=== PATIENT | male | born 1965 | race Caucasian/White ===

== ENCOUNTER 2023-02-06 15:59 | Outpatient (AMB) | payer OTHER, SELFPAY ==
[2023-02-06 16:05] VITALS: BP 122/60; PULSE 71; O2SAT 95; BMI 34.3
--- NOTE | 2023-02-06 16:05 | HO.NEPHOV ---
HPI HPI Comments History of Present Illness Details Cesario is a pleasant middle-aged man with a short longstanding diabetes mellitus complicated by him CKD. His recent serum creatinine from 1.2 mg/dL as of January 2023. He is scheduled for cataract surgery next month. Overall blood sugar seems to be better controlled. He has no new issues today. Vital Signs 02/06/23 16:05 Height 5 ft 9 in Weight 232 lb BMI 34.3 BP 122/60 Blood Pressure Location Rt brachial Position Sitting Pulse 71 Pulse Source Pulse Oximeter Pulse Oximetry (%) 95 Oxygen Delivery Method Room Air Physical Exam Vital Signs: Last Vital Signs Pulse 71 02/06/23 16:05 BP 122/60 02/06/23 16:05 Pulse Ox 95 02/06/23 16:05 Oxygen Delivery Method Room Air 02/06/23 16:05 BMI result Body Mass Index 34.3 Const General: comfortable Nutritional Appearance: well nourished Orientation/consciousness: patient oriented x3 HEENT Head: No normal to inspection Mouth: moist mucous membranes Neck Neck: Yes supple and Yes no JVD Resp Auscultation: clear to auscultation bilaterally, no rales and rub present Cardio Jugular venous distension: no JVD Palpation: no palpable S3 and no palpable S4 Heart sounds: no rubs GI Palpation (GI): Soft to palpation and nontender Percussion: No Fluid wave present General: Yes no CVA tenderness Back/Spine/Pelvis Back: no CVA tenderness Skin General skin exam: no rashes or lesions noted Neuro General: patient oriented x3 Extrem General: Yes no pedal edema and No clubbing Results Reviewed Results Reviewed: All labs reviewed Assessment & Plan Assessment & Plan (1) CKD (chronic kidney disease) stage 3, GFR 30-59 ml/min: Code(s): N18.30 - Chronic kidney disease, stage 3 unspecified Plan: CKD due to hypertension diabetic disease. Renal function close to baseline. Goal is to slow the portion disease. Continue to avoid nephrotoxic agents Maintain blood pressure less than 130/80 and A1c less than 7%. Maintaining ACEi for renal protection. Unable to increase the dose at this time He will benefit from SGLT 2 inhibitor (2) HTN (hypertension): Code(s): I10 - Essential (primary) hypertension Plan: Blood pressure is well controlled. Discussed low-salt diet Continue current antihypertensive regimen. (3) Diabetes mellitus with kidney disease: Onset Date: Unknown Code(s): E11.21 - Type 2 diabetes mellitus with diabetic nephropathy Plan: Goal is to maintain A1c < 7% All the meds were reviewed and discussed importance of tight control of blood pressure. Coding Level of Care Code Est Pt Level 4 (85679) Diagnoses CKD (chronic kidney disease) stage 3, GFR 30-59 ml/min N18.30 HTN (hypertension) I10 Diabetes mellitus with kidney disease E11.21
== END 2023-02-06 16:26 | disposition home or self-care (01) ==
PROVIDERS: PCP Internal Medicine; Visit Provider Internal Medicine Hypertension Specialist
DX: I12.9 Hypertensive chronic kidney disease with stage 1 through stage 4 chronic kidney disease, or unspecified chronic kidney disease (principal); E11.22 Type 2 diabetes mellitus with diabetic chronic kidney disease; N18.30 Chronic kidney disease, stage 3 unspecified
CPT/HCPCS: 99214

== ENCOUNTER → 2023-02-06 15:59 | Outpatient (BNVA) | payer OTHER, SELFPAY | PROVIDERS: PCP Internal Medicine; Visit Provider Internal Medicine Hypertension Specialist ==

== ENCOUNTER 2023-06-05 15:35 | Outpatient (AMB) | payer OTHER, SELFPAY ==
[2023-06-05 15:37] VITALS: BP 114/64; PULSE 72; O2SAT 96; BMI 32.9
--- NOTE | 2023-06-05 15:37 | HO.NEPHOV ---
HPI HPI Comments History of Present Illness Details Cesario is a pleasant middle-aged man with a short longstanding diabetes mellitus complicated by him CKD. His recent serum creatinine from 1.2 mg/dL as of January 2023. s/p Cataract and able to see clearly Overall blood sugar seems to be better controlled. He has no new issues today. [facility] Surgical History (Updated 06/05/23 @ 15:41 by Elvie Gonzalez) Hx of cataract surgery (~02/2023) Social History (Updated 06/05/23 @ 15:41 by Elvie Gonzalez) Alcohol intake: former Use of substances other than those prescribed or required for medical reasons: No Vital Signs 06/05/23 15:37 Height 5 ft 9 in Weight 223 lb BMI 32.9 BP 114/64 Blood Pressure Location Rt brachial Position Sitting Pulse 72 Pulse Source Pulse Oximeter Pulse Oximetry (%) 96 Oxygen Delivery Method Room Air Physical Exam Vital Signs: Last Vital Signs Pulse 72 06/05/23 15:37 BP 114/64 06/05/23 15:37 Pulse Ox 96 06/05/23 15:37 Oxygen Delivery Method Room Air 06/05/23 15:37 BMI result Body Mass Index 32.9 Const General: comfortable Nutritional Appearance: well nourished Orientation/consciousness: patient oriented x3 HEENT Head: No normal to inspection Mouth: moist mucous membranes Neck Neck: Yes supple and Yes no JVD Resp Auscultation: clear to auscultation bilaterally, no rales and rub present Cardio Jugular venous distension: no JVD Palpation: no palpable S3 and no palpable S4 Heart sounds: no rubs GI Palpation (GI): Soft to palpation and nontender Percussion: No Fluid wave present General: Yes no CVA tenderness Back/Spine/Pelvis Back: no CVA tenderness Skin General skin exam: no rashes or lesions noted Neuro General: patient oriented x3 Extrem General: Yes no pedal edema and No clubbing Assessment & Plan Assessment & Plan (1) CKD (chronic kidney disease) stage 3, GFR 30-59 ml/min: Code(s): N18.30 - Chronic kidney disease, stage 3 unspecified Plan: CKD due to hypertension diabetic disease. Renal function close to baseline. Goal is to slow the progression of kidney disease. Continue to avoid nephrotoxic agents Maintain blood pressure less than 130/80 and A1c less than 7%. Maintaining ACEi for renal protection. Unable to increase the dose at this time (2) HTN (hypertension): Code(s): I10 - Essential (primary) hypertension Plan: Blood pressure is well controlled. Discussed low-salt diet Continue current antihypertensive regimen. (3) Diabetes mellitus with kidney disease: Onset Date: Unknown Code(s): E11.21 - Type 2 diabetes mellitus with diabetic nephropathy Plan: Goal is to maintain A1c < 7% All the meds were reviewed and discussed importance of tight control of blood pressure. Coding Level of Care Code Est Pt Level 4 (48927) Diagnoses CKD (chronic kidney disease) stage 3, GFR 30-59 ml/min N18.30 HTN (hypertension) I10 Diabetes mellitus with kidney disease E11.21 Results Reviewed Results Reviewed: 05/30/23 cr 1.5 Nephrology Results: No Data to Display
== END 2023-06-05 15:54 | disposition home or self-care (01) ==
PROVIDERS: PCP Internal Medicine; Visit Provider Internal Medicine Hypertension Specialist
DX: N18.30 Chronic kidney disease, stage 3 unspecified (principal); I10 Essential (primary) hypertension; E11.21 Type 2 diabetes mellitus with diabetic nephropathy
CPT/HCPCS: 99214

== ENCOUNTER → 2023-06-05 15:35 | Outpatient (BNVA) | payer OTHER, SELFPAY | PROVIDERS: PCP Internal Medicine; Visit Provider Internal Medicine Hypertension Specialist ==

== ENCOUNTER 2023-10-03 15:48 | Outpatient (AMB) | payer OTHER, SELFPAY ==
--- NOTE | 2023-10-03 15:47 | HO.NEPHOV_ITS ---
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 His recent serum creatinine from 1.2 mg/dL as of January 2023. s/p Cataract and able to see clearly Overall blood sugar seems to be better controlled. He has no new issues today. Did not have blood work yet [facility] Surgical History Hx of cataract surgery (~02/2023) Social History Alcohol intake: former Physical Exam Vital Signs: Last Vital Signs Pulse 72 10/03/23 15:48 BP 130/60 10/03/23 15:48 Pulse Ox 97 10/03/23 15:48 Oxygen Delivery Method Room Air 10/03/23 15:48 BMI result Body Mass Index 33.7 Const General: comfortable; No acute distress Orientation/consciousness: patient oriented x3 Eyes General: appearance normal, both eyes and all related structures Visual Hewitt: normal visual hewitt by confrontation Neck Neck: Yes supple and Yes no JVD Resp Effort & Inspection: normal respiratory effort and respiratory effort not decreased Auscultation: rhonchi Cardio Palpation: no palpable S3 and no palpable S4 Heart sounds: no rubs GI Inspection: Yes normal to inspection Palpation (GI): Soft to palpation Percussion: Yes normal to percussion Auscultation: normal bowel sounds General: Yes no CVA tenderness Back/Spine/Pelvis Back: no CVA tenderness Skin General skin exam: no petechiae and no purpura Neuro General: patient oriented x3 and no focal motor deficits Extrem General: No clubbing and No edema Results Reviewed Nephrology Results: No Data to Display Assessment & Plan Assessment & Plan (1) CKD (chronic kidney disease) stage 3, GFR 30-59 ml/min: Code(s): N18.30 - Chronic kidney disease, stage 3 unspecified Category: Medical Plan: CKD due to hypertension diabetic disease. Renal function has been close to baseline. Goal is to slow the progression of kidney disease. Continue to avoid nephrotoxic agents Maintain blood pressure less than 130/80 and A1c less than 7%. Maintaining ACEi for renal protection. Unable to increase the dose at this time Repeat Labs today (2) HTN (hypertension): Code(s): I10 - Essential (primary) hypertension Category: Medical Plan: Blood pressure is well controlled. Discussed low-salt diet Continue current antihypertensive regimen. (3) Diabetes mellitus with kidney disease: Onset Date: Unknown Code(s): E11.21 - Type 2 diabetes mellitus with diabetic nephropathy Category: Medical Plan: Goal is to maintain A1c < 7% All the meds were reviewed and discussed importance of tight control of blood pressure. Orders: Orders Comprehensive Met. Panel Today E11.21 - Type 2 diabetes mellitus with diabetic nephropathy Coding Level of Care Code Est Pt Level 4 (31689) Diagnoses CKD (chronic kidney disease) stage 3, GFR 30-59 ml/min N18.30 HTN (hypertension) I10 Diabetes mellitus with kidney disease E11.21
[2023-10-03 15:48] VITALS: BP 130/60; PULSE 72; O2SAT 97; BMI 33.7
== END 2023-10-03 16:02 | disposition home or self-care (01) ==
PROVIDERS: PCP Internal Medicine; Visit Provider Internal Medicine Hypertension Specialist
DX: N18.30 Chronic kidney disease, stage 3 unspecified (principal); I10 Essential (primary) hypertension; E11.21 Type 2 diabetes mellitus with diabetic nephropathy
CPT/HCPCS: 99214

== ENCOUNTER → 2023-10-03 15:48 | Outpatient (BNVA) | payer OTHER, SELFPAY | PROVIDERS: PCP Internal Medicine; Visit Provider Internal Medicine Hypertension Specialist ==

== ENCOUNTER 2024-02-05 13:48 | Outpatient (AMB) | payer OTHER, SELFPAY ==
--- NOTE | 2024-02-05 13:54 | HO.NEPHOV_ITS ---
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 Accompanied by: Self / Same As Patient Allergies No Known Allergies Allergy (Mild, Verified 02/05/24 13:56) NOT APPLICABLE Medication List - Last Reconciled 02/05/24 by Santiago Layne MD amlodipine 2.5 mg PO DAILY atorvastatin 40 mg PO DAILY fluoxetine 10 mg PO DAILY insulin glargine (Lantus Solostar U-100 Insulin) 10 units subcut QPM insulin lispro (Humalog KwikPen (U-100) Insulin) 1 sliding scale dose subcut USEASDIRECTD lisinopril 2.5 mg PO DAILY metformin 500 mg PO BID HPI Comments Details: Cesario is a pleasant middle-aged man with a short longstanding diabetes mellitus complicated by him CKD. His recent serum creatinine from 1.2 mg/dL as of January 2023. s/p Cataract and able to see clearly Overall blood sugar seems to be better controlled. He has no new issues today. [facility] Surgical History Hx of cataract surgery (~02/2023) Social History Alcohol intake: former Physical Exam Vital Signs: Last Vital Signs Pulse 70 02/05/24 13:55 BP 128/64 02/05/24 13:55 Pulse Ox 96 02/05/24 13:55 Oxygen Delivery Method Room Air 02/05/24 13:55 BMI result Body Mass Index 33.7 Results Reviewed Nephrology Results: No Data to Display Assessment & Plan Assessment & Plan (1) CKD (chronic kidney disease) stage 3, GFR 30-59 ml/min: Code(s): N18.30 - Chronic kidney disease, stage 3 unspecified Category: Medical Plan: CKD due to hypertension diabetic disease. Mild bump in creatinine due to next progression versus hypoperfusion. Goal is to slow the progression of kidney disease. Continue to avoid nephrotoxic agents Maintain blood pressure less than 130/80 and A1c less than 7%. Maintaining ACEi for renal protection. (2) HTN (hypertension): Code(s): I10 - Essential (primary) hypertension Category: Medical Plan: Blood pressure is well controlled. Discussed low-salt diet Continue current antihypertensive regimen. Orders: Orders Basic Metabolic Panel 3 Months I10 - Essential (primary) hypertension, N18.30 - Chronic kidney disease, stage 3 unspecified Coding Level of Care Code Est Pt Level 4 (44400) Diagnoses CKD (chronic kidney disease) stage 3, GFR 30-59 ml/min N18.30 HTN (hypertension) I10
[2024-02-05 13:55] VITALS: BP 128/64; PULSE 70; O2SAT 96; BMI 33.7
== END 2024-02-05 14:13 | disposition home or self-care (01) ==
PROVIDERS: PCP Internal Medicine; Visit Provider Internal Medicine Hypertension Specialist
DX: I12.9 Hypertensive chronic kidney disease with stage 1 through stage 4 chronic kidney disease, or unspecified chronic kidney disease (principal); N18.30 Chronic kidney disease, stage 3 unspecified
CPT/HCPCS: 99214

== ENCOUNTER → 2024-02-05 13:48 | Outpatient (BNVA) | payer OTHER, SELFPAY | PROVIDERS: PCP Internal Medicine; Visit Provider Internal Medicine Hypertension Specialist ==

== ENCOUNTER 2024-06-04 15:29 | Outpatient (AMB) | payer OTHER, SELFPAY ==
[2024-06-04 15:30] VITALS: BP 142/60; PULSE 72; O2SAT 97; BMI 34.6
--- NOTE | 2024-06-04 15:30 | HO.NEPHOV ---
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: No Accompanied by: Self / Same As Patient Allergies No Known Allergies Allergy (Mild, Verified 06/04/24 15:32) NOT APPLICABLE Medication List - Last Reconciled 06/04/24 by Santiago Layne MD amlodipine 2.5 mg PO DAILY atorvastatin 40 mg PO DAILY fluoxetine 10 mg PO DAILY insulin glargine (Lantus Solostar U-100 Insulin) 10 units subcut QPM insulin lispro (Humalog KwikPen (U-100) Insulin) 1 sliding scale dose subcut USEASDIRECTD lisinopril 2.5 mg PO DAILY metformin 500 mg PO BID HPI Comments Details: Cesario is a pleasant middle-aged man with a short longstanding diabetes mellitus complicated by him CKD. His recent serum creatinine from 1.2 mg/dL as of January 2023. s/p Cataract and able to see clearly Overall blood sugar seems to be better controlled. He has no new issues today. [facility] Surgical History Hx of cataract surgery (~02/2023) Social History Alcohol intake: former Physical Exam Vital Signs: Last Vital Signs Pulse 72 06/04/24 15:30 BP 142/60 H 06/04/24 15:30 Pulse Ox 97 06/04/24 15:30 Oxygen Delivery Method Room Air 06/04/24 15:30 BMI result Body Mass Index 34.6 Comfortable Neck supple no JVD. Lungs entry equal no rales. Heart S1-S2 heard no gallop or rub. Abdomen soft nontender. Neuro alert awake oriented. No asterixis. Extremities no edema. Results Reviewed Nephrology Results: No Data to Display Assessment & Plan Assessment & Plan (1) CKD (chronic kidney disease) stage 3, GFR 30-59 ml/min: Code(s): N18.30 - Chronic kidney disease, stage 3 unspecified Category: Medical Plan: CKD due to hypertension diabetic disease. Mild bump in creatinine due to next progression versus hypoperfusion. Cr back down to baseline Goal is to slow the progression of kidney disease. Continue to avoid nephrotoxic agents Maintain blood pressure less than 130/80 and A1c less than 7%. Maintaining ACEi for renal protection. (2) HTN (hypertension): Code(s): I10 - Essential (primary) hypertension Category: Medical Plan: Blood pressure is well controlled. Discussed low-salt diet Discussed weight loss Continue current antihypertensive regimen. Orders: Orders Basic Metabolic Panel 4 Months N18.30 - Chronic kidney disease, stage 3 unspecified Coding Level of Care Code Est Pt Level 4 (82775) Diagnoses CKD (chronic kidney disease) stage 3, GFR 30-59 ml/min N18.30 HTN (hypertension) I10
[2024-06-04 15:37] VITALS: BP 132/60
--- OUTSIDE RECORDS SUMMARY | 2024-06-04 18:43 | XMS_ITS | Clinical Summary ---
Author Organization [facility] Address [address] [place] [address] Phone Care Team Providers Care Occupational Therapy Specialist Name Role Phone Ashvin Mahmood MD Primary Care Provider [phone] Allergies No known active allergies Medications atorvastatin (LIPITOR) 40 MG tablet 1 Active FLUoxetine (PROzac) 10 MG capsule Take 1 capsule by mouth 1 (one) time each day Active metFORMIN (GLUCOPHAGE) 500 MG tablet Take 500 mg by mouth in the morning and 500 mg in the evening. 0 Active HumaLOG KWIKPEN 100 UNIT/ML solution pen-injector 1 Active insulin glargine (Lantus) 100 UNIT/ML injection Inject 45 Units under the skin 1 Active lisinopril 2.5 MG tablet TAKE 1 TABLET BY MOUTH EVERY DAY 90 tablet 3 3 Active Continuous Blood Gluc Sensor (FreeStyle Gopi 2 Sensor) [facility] [place] FOR BLOOD GLUCOSE MONITERING 3 Active amLODIPine (NORVASC) 2.5 MG tablet TAKE 1 TABLET BY MOUTH EVERY DAY 90 tablet 1 3 Active Active Problems Problem Noted Date Diagnosed Date Hematoma 03/29/2021 Acute nontraumatic kidney injury 10/01/2020 Chronic kidney disease stage 3 10/01/2020 Proteinuria 10/01/2020 Renal disorder due to type 1 diabetes mellitus 0 10/01/2020 Immunizations Name Administration Dates Next Due Pneumococcal Polysaccharide 01/12/2014 Family History Medical History Relation Comments Diabetes Mother Relation Status Comments Mother Social History Tobacco Use Types Packs/Day Years Used Date Smoking Tobacco: Never Smokeless Tobacco: Never Tobacco Cessation:Counseling Given: Not Answered Sex and Gender Information Value Date Recorded Sex Assigned at Not on file Legal Sex Male 5:07 PM EST Gender Identity Not on file Sexual Orientation Not on file Last Filed Vital Signs Vital Sign Reading Time Taken Comments Blood Pressure 141/65 10/17/2022 4:26 PM EDT Pulse 77 10/17/2022 4:26 PM EDT Temperature - - Respiratory Rate - - Oxygen Saturation 96% 10/17/2022 4:26 PM EDT Inhaled Oxygen Concentration - - Weight 102 kg (224 lb 6.4 oz) 10/17/2022 4:26 PM EDT Height 175.3 cm (5' 9 ) 07/11/2022 4:05 PM EDT Body Mass Index 33.14 07/11/2022 4:05 PM EDT Plan of Treatment Health Maintenance Due Date Last Done Comments Hepatitis B Vaccine (1 of 3 - 19+ 3-dose series) 12/19 Colorectal Cancer Screening: Annual FOBT 2014 Colorectal Cancer Screening: Colonoscopy 2014 Colorectal Cancer Screening: Sigmoidoscopy 2014 Pneumococcal Vaccine: Pediat rics (0 to 5 Years) and At-Risk Patients (6 to 64 Years) (2 of 2 - PCV) 01/12/2015 01/12/2014 Diabetes: Hemoglobin A1C 04/27/2020 Diabetes: Ophthalmology Exam 04/27/2020 Diabetes: Pedal Pulse Checked 04/27/2020 Diabetes: Sensory Foot Exam 04/27/2020 Diabetes: Visual Foot Exam 04/27/2020 Influenza Vaccine (#1) 2023 Insurance [facility] Care Teams Occupational Therapy Specialist Relationship Specialty Start Date End Date Ashvin Mahmood MD [address] [place] [address] PCP - General 04/06/20
== END 2024-06-04 15:41 | disposition home or self-care (01) ==
LOC: HO.HKA 15:29
PROVIDERS: PCP Internal Medicine; Visit Provider Internal Medicine Hypertension Specialist
DX: N18.30 Chronic kidney disease, stage 3 unspecified (principal); I10 Essential (primary) hypertension
CPT/HCPCS: 99214

== ENCOUNTER 2024-09-16 09:50 | Emergency (ER) | payer OTHER, SELFPAY ==
[2024-09-16 10:01] VITALS: BP 112/59; BP 132/68; PULSE 66; PULSE 68; RESP 18; TEMP 36.8; O2SAT 92; O2SAT 96; BMI 34.4
[2024-09-16 10:11] LABS: Glucose, Whole Blood 164 mg/dL (60-115)
--- NOTE | 2024-09-16 10:15 | PC.NURSE ---
pt currently a&ox3, answering questions appropriately, repeat poc performed in ed upon arrival 164. with ok of ed provider, pt was given a sandwich to eat to stabilize his bs. pt denies pain/discomfort and states I am so embarrassed I ended up here. pt denies any recent illness. rr equal/non labored, vitals stable, call [facility] within reach, plan of ongoing.
[2024-09-16 10:49] LABS: MANUAL DIFF FLAG NO
[2024-09-16 10:59] LABS: Basophils Absolute Auto 0.1 X10*3/uL (0.0-0.2); Basophils Percent Auto 0.8 % (0-2); Eosinophils Absolute Auto 0.1 X10*3/uL (0.0-0.4); Eosinophils Percent Auto 1.5 % (0-4); Hemoglobin 13.3 g/dl (14.0-18.0); Imm Gran Abs Auto 0.08 X10*3/uL (0.00-0.03); Imm Gran Pct Auto 0.8 % (0.0-0.4); Lymphocytes Absolute Auto 0.7 X10*3/uL (1.2-4.9); Lymphocytes Percent Auto 7.7 % (20-40); Mean Corpuscular HGB Conc 33.3 g/dl (31.0-36.0); Mean Corpuscular Hemoglobin 31.3 pg (27.0-33.0); Mean Corpuscular Volume 94.1 fL (80.0-98.0); Mean Platelet Volume 9.7 fL (9.4-12.4); Monocytes Absolute Auto 0.8 X10*3/uL (0.1-1.2); Monocytes Percent Auto 7.8 % (2-11); Neutrophils Absolute Auto 7.8 x10*3/uL (2.0-8.3); Neutrophils Percent Auto 81.4 % (45-73); Platelet Count 222 X10*3/uL (160-400); Red Blood Count 4.25 X10*6/uL (4.60-5.80); White Blood Count 9.6 X10*3/uL (4.8-10.8)
--- NOTE | 2024-09-16 11:02 | ED.GENADULT ---
HPI - General Adult General Chief complaint: General Medical Stated complaint: AMS Time Seen by Provider: 09/16/24 10:38 Source: patient Mode of arrival: ambulatory Limitations: no limitations History of Present Illness ED Provider: Dieter Mcneil HPI narrative: 58 yold male with pmh of Diabetes, HTN, and CKD stage 3 presents to the ED for alterled mental status. Patient was found in the bathroom at his job and glucose fingerstick was 42. Patient states this morning he did not eat and instead of taking 15 units of insulin he took 30. Patient states his glucose was slightly over 200 so he wanted to bring it down. Patient denies any chest pain, shortness of breath, abdominal pain, dizziness before altered mental status state because of hypoglycemia. Patient was given D10 in the EMS. Patient was given peanut butter sandwich and milk in the ER. Glucose was 164. Patient is alert oriented x3. Patient is presently asymptomatic Related Data Home Medications ?Medication ?Instructions ?Recorded ?Confirmed atorvastatin 40 mg tablet 40 mg PO DAILY 02/06/23 06/04/24 fluoxetine 10 mg capsule 10 mg PO DAILY 02/06/23 06/04/24 insulin glargine 100 unit/mL (3 10 unit subcut QPM 02/06/23 06/04/24 mL) subcutaneous pen (Lantus Solostar U-100 Insulin) insulin lispro 100 unit/mL 1 sliding scale dose subcut 02/06/23 06/04/24 subcutaneous pen (Humalog KwikPen USEASDIRECTD (U-100) Insulin) metformin 500 mg tablet 500 mg PO BID 02/06/23 06/04/24 Previous Rx's ?Medication ?Instructions ?Recorded amlodipine 2.5 mg tablet 2.5 mg PO DAILY #90 tabs 03/06/24 lisinopril 2.5 mg tablet 2.5 mg PO DAILY #90 tabs 08/20/24 Allergies Allergy/AdvReac Type Severity Reaction Status Date / Time No Known Allergies Allergy Mild NOT Verified 09/16/24 10:04 APPLICABLE Review of Systems Review of Systems: altered mental status Yes all other systems are reviewed and are negative [facility] Past Medical History Surgical History Hx of cataract surgery (~02/2023) Social History Social History (Reviewed 03/11/25 @ 15:32 by GELACIO Gu Alcohol intake: former Smoked in Last 30 Days: No Use of substances other than those prescribed or required for medical reasons: No Advance Directives: No Advance Directives Information Provided: Yes Do you have a plan to hurt others: No Plan Physical Exam ED Vital Signs: Vital Signs - 24 hr 09/16/24 10:01 09/16/24 12:03 09/16/24 14:08 Temperature 98.3 F 97.9 F 97.3 F Pulse Rate 66 62 65 Respiratory Rate 18 16 12 Blood Pressure 112/59 L 117/64 166/64 H Pulse Oximetry 92 94 97 Oxygen Delivery Method Room Air Room Air Room Air 09/16/24 14:37 Temperature 98.3 F Pulse Rate 64 Respiratory Rate 18 Blood Pressure 166/64 H Pulse Oximetry 96 Oxygen Delivery Method Room Air BMI result Body Mass Index 34.4 Const General: cooperative, healthy appearing, comfortable, no acute distress, well developed, alert, awake and Physically active [facility] Head: Yes normal to inspection, Yes No palpable skull fracture present, Yes normocephalic and Yes atraumatic Throat: Yes posterior oropharynx normal, Yes tonsils normal and Yes uvula midline Eyes General: appearance normal, both eyes and all related structures Neck Neck: Yes normal visual inspection, Yes full ROM, Yes no lymphadenopathy, Yes no meningeal signs, Yes trachea midline, Yes supple, No anterior neck swelling and No tender Chest Chest palpation & inspection: normal inspection of the chest and normal palpation of entire chest wall Resp Effort & Inspection: normal respiratory effort and able to speak in complete sentences Auscultation: clear to auscultation bilaterally Cardio Jugular venous distension: no JVD Heart sounds: S1 normal heart sound present and S2 normal heart sound present GI Inspection: Yes normal to inspection Palpation (GI): Soft to palpation, not firm, nontender, no guarding and not rigid General: Yes no CVA tenderness Back/Spine/Pelvis Back: no CVA tenderness and No back tenderness Skin General skin exam: no rashes or lesions noted, elasticity normal and turgor normal Neuro General: gait normal, tone normal, moves all extremities, Normal light touch and pain sensation, no meningeal signs, no focal motor deficits, CN's II-XI intact bilaterally and normal sensation to monofilament Extrem General: Yes normal to inspection, Yes full ROM and Yes capillary refill normal Psych Appearance: grossly normal, well kempt and not disheveled Medical Decision Making Medical Decision Making MDM Narrative: 58-year-old male history of diabetes presents to the ED for altered mental status due to hypoglycemia. Patient usually takes 15 units of insulin but instead took 30 units this morning without eating food due to his glucose being above slightly to 100. Patient was found in the hospital given D10 and peanut butter sandwich now glucose 164. Presently patient is alert oriented x3 asymptomatic. We will do labs and evaluate patient's fingerstick. 2:10pm: patient is not in distress. Patient is alert oriented x3. POC 263 without any D5 liquid. Patient is eating food. Patient is educated on proper use of insulin and being compliant to insulin dosages. Patient's O2 saturation on room air on monitor 95-97%. Earlier readings of 90-94 were positional patient is lying down flat and sleeping. Patient explained worrisome signs and informed to return to the ED immediately. Not suspecting PR, DKA, hyperglycemic seizure, brain bleed, electrolyte abnormality, or any other life threatening etiology. Differential Diagnosis Differential Diagnoses: The differential diagnosis associated with the presentation includes ( Hypoglycemia) Admission/Observation Consideration of admission/observation: Escalation of care including admission/observation considered Lab Data [facility] Lab Attestation statement: I reviewed the patient's lab results. 09/16/24 10:42 09/16/24 10:43 Labs: Lab Results 09/16/24 09/16/24 09/16/24 Range/Units 09:59 10:42 10:43 WBC 9.6 (4.8-10.8) X10*3/uL RBC 4.25 L (4.60-5.80) X10*6/uL Hgb 13.3 L (14.0-18.0) g/dl Hct 40.0 L (42.0-52.0) % MCV 94.1 (80.0-98.0) fL MCH 31.3 (27.0-33.0) pg MCHC 33.3 (31.0-36.0) g/dl RDW 13.0 (11.0-16.0) % Plt Count 222 (160-400) X10*3/uL MPV 9.7 (9.4-12.4) fL Immature Gran % (Auto) 0.8 H (0.0-0.4) % Neut % (Auto) 81.4 H (45-73) % Lymph % (Auto) 7.7 L (20-40) % [place] % (Auto) 7.8 (2-11) % Eos % (Auto) 1.5 (0-4) % Baso % (Auto) 0.8 (0-2) % Lymph # (Auto) 0.7 L (1.2-4.9) X10*3/uL [place] # (Auto) 0.8 (0.1-1.2) X10*3/uL Eos # (Auto) 0.1 (0.0-0.4) X10*3/uL Baso # (Auto) 0.1 (0.0-0.2) X10*3/uL Abs Immat Gran (auto) 0.08 H (0.00-0.03) X10*3/uL Absolute Neuts (auto) 7.8 (2.0-8.3) x10*3/uL Absolute Nucleated RBC 0.000 (0.0-0.012) X10*3/uL Nucleated RBC % (auto) 0.0 (0.0-0.2) /100WBC Sodium 139 (135-145) mmol/L Potassium 3.8 (3.3-5.1) mmol/L Chloride 107 (96-108) mmol/L Carbon Dioxide 24 (22-29) mmol/L Anion Gap 12 (12-20) BUN 22 H (9-16) mg/dL Creatinine 1.35 (0.5-1.4) mg/dL Estim Creat Clear Calc 71.4 Estimated GFR 54 POC Glucose 164 H (60-115) mg/dL Random Glucose 175 H (60-115) mg/dL Calcium 8.4 (8.4-10.2) mg/dL 09/16/24 Range/Units 11:43 WBC (4.8-10.8) X10*3/uL RBC (4.60-5.80) X10*6/uL Hgb (14.0-18.0) g/dl Hct (42.0-52.0) % MCV (80.0-98.0) fL MCH (27.0-33.0) pg MCHC (31.0-36.0) g/dl RDW (11.0-16.0) % Plt Count (160-400) X10*3/uL MPV (9.4-12.4) fL Immature Gran % (Auto) (0.0-0.4) % Neut % (Auto) (45-73) % Lymph % (Auto) (20-40) % [place] % (Auto) (2-11) % Eos % (Auto) (0-4) % Baso % (Auto) (0-2) % Lymph # (Auto) (1.2-4.9) X10*3/uL [place] # (Auto) (0.1-1.2) X10*3/uL Eos # (Auto) (0.0-0.4) X10*3/uL Baso # (Auto) (0.0-0.2) X10*3/uL Abs Immat Gran (auto) (0.00-0.03) X10*3/uL Absolute Neuts (auto) (2.0-8.3) x10*3/uL Absolute Nucleated RBC (0.0-0.012) X10*3/uL Nucleated RBC % (auto) (0.0-0.2) /100WBC Sodium (135-145) mmol/L Potassium (3.3-5.1) mmol/L Chloride (96-108) mmol/L Carbon Dioxide (22-29) mmol/L Anion Gap (12-20) BUN (9-16) mg/dL Creatinine (0.5-1.4) mg/dL Estim Creat Clear Calc Estimated GFR POC Glucose 263 H (60-115) mg/dL Random Glucose (60-115) mg/dL Calcium (8.4-10.2) mg/dL Prescription Management I considered prescription management with: Other ( patient) Discharge Plan Discharge Clinical Impression: Hypoglycemia associated with diabetes Patient Disposition: Home, Self-Care Instructions: Hypoglycemia in a Person with Diabetes (ED), What is Insulin (ED) Additional Instructions: recommend follow-up with your primary care provider. Do not take more insulin than needed. Return to the ED for weakness, dizziness, seizure, altered mental status, chest pain, shortness of breath, or any other concerning symptoms. Prescriptions: No Action amlodipine 2.5 mg tablet 2.5 mg PO DAILY Qty: 90 2RF lisinopril 2.5 mg tablet 2.5 mg PO DAILY Qty: 90 3RF insulin glargine [Lantus Solostar U-100 Insulin] 100 unit/mL (3 mL) insulin pen 10 unit subcut QPM insulin lispro [Humalog KwikPen Insulin] 100 unit/mL insulin pen 1 sliding scale dose subcut USEASDIRECTD metformin 500 mg tablet 500 mg PO BID atorvastatin 40 mg tablet 40 mg PO DAILY fluoxetine 10 mg capsule 10 mg PO DAILY Referrals: Ashvin Mahmood MD [Primary Care Provider, Medical] - 1 day Referral Note: Hypoglycemia caused by taking too much insulin Clinical Impression: Hypoglycemia associated with diabetes Stand Alone Forms: Work/School Release Interventions: ED Discharge Assessment Last Done: 09/16/24 14:37 Discharge Date/Time: 09/16/24 14:37 Print Language: Albanian
[2024-09-16 11:05] LABS: Anion Gap 12 (12-20); Blood Urea Nitrogen 22 mg/dL (9-16); Calcium 8.4 mg/dL (8.4-10.2); Carbon Dioxide 24 mmol/L (22-29); Chloride 107 mmol/L (96-108); Creatinine Clr Calc Pharmacy 71.4; Estimated Glomerular Filt Rate 54; Glucose Random 175 mg/dL (60-115); Potassium 3.8 mmol/L (3.3-5.1); Sodium 139 mmol/L (135-145)
--- OUTSIDE RECORDS SUMMARY | 2024-09-16 11:20 | XMS_ITS | Clinical Summary ---
Author Organization [facility] Address [address] [place] [address] Phone Care Team Providers Care School Laboratory Technician Name Role Phone Ashvin Mahmood MD Primary Care Provider [phone] Allergies No known active allergies Medications atorvastatin [...] Blood Gluc Sensor (FreeStyle Gopi 2 Sensor) [facility] [place] 3 Active amLODIPine (NORVASC) 2.5 MG tablet TAKE 1 TABLET BY MOUTH EVERY DAY 90 tablet 1 3 Active Active Problems Problem Noted Date Diagnosed Date Hematoma 03/29/2021 Acute nontraumatic kidney injury 10/01/2020 Chronic kidney disease stage 3 10/01/2020 Proteinuria 10/01/2020 Renal disorder due to type 1 diabetes mellitus 0 10/01/2020 Immunizations Immunization Administration Dates Next Due Pneumococcal Polysaccharide 01/12/2014 [...] Colorectal Cancer Screening: Sigmoidoscopy 2014 Pneumococcal Vaccine: 50+ Years (2 of 2 - PCV) 015 01/12/2014 Diabetes: Hemoglobin A1C 04/27/2020 Diabetes: Ophthalmology Exam 04/27/2020 Diabetes: Pedal Pulse Checked 04/27/2020 Diabetes: Sensory Foot Exam 04/27/2020 Diabetes: Visual Foot Exam 04/27/2020 Influenza Vaccine (Season Ended) 2024 Pneumococcal Vaccine: Peds ( 0 to 5 Years) and At-Risk Patients (6 to 49 Years) Discontinued 01/12/2014 Insurance [facility] Care Teams School Laboratory Technician Relationship Specialty Start Date End Date Ashvin Mahmood MD [address] [place] [address] PCP - General 04/06/20
[2024-09-16 11:47] LABS: Glucose, Whole Blood 263 mg/dL (60-115)
[2024-09-16 12:03] VITALS: BP 117/64; PULSE 62; RESP 16; TEMP 36.6; O2SAT 94
--- NOTE | 2024-09-16 12:04 | PC.NURSE ---
patient a&o3, athletic monitor nsr, vss, repeat poc 263, call [facility] within reach, plan of care ongoing
[2024-09-16 14:08] VITALS: BP 166/64; PULSE 65; RESP 12; TEMP 36.3; O2SAT 97
[2024-09-16 14:37] VITALS: BP 166/64; PULSE 64; RESP 18; TEMP 36.8; O2SAT 96
== END 2024-09-16 14:37 | disposition home or self-care (01) ==
PROVIDERS: Emergency Provider Emergency Medicine; PCP Internal Medicine
DX: E11.649 Type 2 diabetes mellitus with hypoglycemia without coma (principal); R41.82 Altered mental status, unspecified; I12.9 Hypertensive chronic kidney disease with stage 1 through stage 4 chronic kidney disease, or unspecified chronic kidney disease; E11.22 Type 2 diabetes mellitus with diabetic chronic kidney disease; N18.30 Chronic kidney disease, stage 3 unspecified; Z79.4 Long term (current) use of insulin; Z79.899 Other long term (current) drug therapy
CPT/HCPCS: 36415; 80048; 82947; 85025; 99283; 99284

== ENCOUNTER 2024-10-29 13:02 | Outpatient (AMB) | payer OTHER, SELFPAY ==
[2024-10-29 13:09] VITALS: BP 112/60; PULSE 65; O2SAT 97; BMI 33.8
--- NOTE | 2024-10-29 13:09 | HO.NEPHOV ---
Vital Signs 10/29/24 13:09 Height 5 ft 9 in Weight 229 lb BMI 33.8 BP 112/60 Blood Pressure Location Rt brachial Position Sitting Pulse 65 Pulse Source Pulse Oximeter Pulse Oximetry (%) 97 Oxygen Delivery Method Room Air Intake Visit Reasons: 4 MO FU Conf Correctional Classification Counselor Required: No Accompanied by: Self / Same As Patient Allergies No Known Allergies Allergy (Mild, Verified 10/29/24 13:11) NOT APPLICABLE Medication List - Last Reconciled 10/29/24 by Santiago Layne MD amlodipine 2.5 mg PO DAILY atorvastatin 40 mg PO DAILY fluoxetine 10 mg PO DAILY insulin glargine (Lantus Solostar U-100 Insulin) 10 units subcut QPM insulin lispro (Humalog KwikPen (U-100) Insulin) 1 sliding scale dose subcut USEASDIRECTD lisinopril 2.5 mg PO DAILY metformin 500 mg PO BID HPI Comments Details: Cesario is a pleasant middle-aged man with a short longstanding diabetes mellitus complicated by him CKD. His recent serum creatinine from 1.2 mg/dL as of January 2023. s/p Cataract and able to see clearly Overall blood sugar seems to be better controlled. He has no new issues today. 10/29/24 s/p right hand surgery BP has been acceptable recently Also had an episode of hypoglycemia and ended upin ER. [facility] Surgical History Hx of cataract surgery (~02/2023) Social History Alcohol intake: former Physical Exam Vital Signs: Last Vital Signs Pulse 65 10/29/24 13:09 BP 112/60 10/29/24 13:09 Pulse Ox 97 10/29/24 13:09 Oxygen Delivery Method Room Air 10/29/24 13:09 BMI result Body Mass Index 33.8 Comfortable Neck supple no JVD. Lungs entry equal no rales. Heart S1-S2 heard no gallop or rub. Abdomen soft nontender. Neuro alert awake oriented. No asterixis. Extremities no edema. Results Reviewed Nephrology Results: Hgb, (14.0-18.0) 13.3 g/dl L 09/16/24 WBC, (4.8-10.8) 9.6 X10*3/uL 09/16/24 Plt Count, (160-400) 222 X10*3/uL 09/16/24 Sodium, (135-145) 139 mmol/L 09/16/24 Potassium, (3.3-5.1) 3.8 mmol/L 09/16/24 Chloride, (96-108) 107 mmol/L 09/16/24 Carbon Dioxide, (22-29) 24 mmol/L 09/16/24 BUN, (9-16) 22 mg/dL H 09/16/24 Creatinine, (0.5-1.4) 1.35 mg/dL 09/16/24 Calcium, (8.4-10.2) 8.4 mg/dL 09/16/24 Assessment & Plan Assessment & Plan (1) CKD (chronic kidney disease) stage 3, GFR 30-59 ml/min: Code(s): N18.30 - Chronic kidney disease, stage 3 unspecified Category: Medical Plan: CKD due to hypertension diabetic disease. Cr close to baseline Goal is to slow the progression of kidney disease. Continue to avoid nephrotoxic agents Maintain blood pressure less than 130/80 and A1c less than 7%. Maintaining ACEi for renal protection. (2) HTN (hypertension): Code(s): I10 - Essential (primary) hypertension Category: Medical Plan: Blood pressure is well controlled. Discussed low-salt diet Discussed weight loss Continue current antihypertensive regimen. Orders: Orders Basic Metabolic Panel 4 Months I10 - Essential (primary) hypertension, N18.30 - Chronic kidney disease, stage 3 unspecified Complete Blood Count no Diff 4 Months I10 - Essential (primary) hypertension, N18.30 - Chronic kidney disease, stage 3 unspecified Coding Level of Care Code Est Pt Level 4 (38443) Diagnoses CKD (chronic kidney disease) stage 3, GFR 30-59 ml/min N18.30 HTN (hypertension) I10
--- OUTSIDE RECORDS SUMMARY | 2024-10-29 13:41 | XMS_ITS | Clinical Summary ---
Author Organization [facility] Address [address] [place] [address] Phone Care Team Providers Care Hunter Skin Diver Name Role Phone Ashvin Mahmood MD Primary Care Provider [phone] Allergies No known active allergies Medications atorvastatin [...] Blood Gluc Sensor (FreeStyle Gopi 2 Sensor) [facility] [place] 3 Active amLODIPine [...] Visual Foot Exam 04/27/2020 Influenza Vaccine (#1) 2024 Pneumococcal Vaccine: Peds ( 0 to 5 Years) and At-Risk Patients (6 to 49 Years) Discontinued 01/12/2014 Insurance [facility] Care Teams Hunter Skin Diver Relationship Specialty Start Date End Date Ashvin Mahmood MD [address] [place] [address] PCP - General 04/06/20
== END 2024-10-29 13:25 | disposition home or self-care (01) ==
LOC: HO.HKA 13:03
PROVIDERS: PCP Internal Medicine; Visit Provider Internal Medicine Hypertension Specialist
DX: N18.30 Chronic kidney disease, stage 3 unspecified (principal); I10 Essential (primary) hypertension
CPT/HCPCS: 99214

== ENCOUNTER 2024-12-26 14:47 | Outpatient (AMB) | payer OTHER, SELFPAY ==
--- NOTE | 2024-12-26 15:13 | HO.NEPHOV ---
Vital Signs 12/26/24 15:14 Height 5 ft 9 in Weight 233 lb BMI 34.4 BP 100/60 Blood Pressure Location Lt brachial Position Sitting Pulse 84 Pulse Source Pulse Oximeter Pulse Oximetry (%) 95 Oxygen Delivery Method Room Air Intake Visit Reasons: [facility] Medication Review, confirmed Director Of National Sales Required: No Accompanied by: Self / Same As Patient Allergies No Known Allergies Allergy (Mild, Verified 12/26/24 15:15) NOT APPLICABLE Medication List - Last Reconciled 12/26/24 by Santiago Layne MD apixaban (Eliquis) 5 mg PO BID atorvastatin 40 mg PO DAILY carvedilol 3.125 mg PO BID dapagliflozin propanediol (Farxiga) 10 mg PO DAILY fluoxetine 10 mg PO DAILY furosemide 40 mg PO DAILY insulin glargine (Lantus Solostar U-100 Insulin) 10 units subcut QPM insulin lispro (Humalog KwikPen (U-100) Insulin) 1 sliding scale dose subcut USEASDIRECTD metformin 500 mg PO BID sacubitril-valsartan 24-26 mg 1 tab PO BID HPI Comments Details: Cesario is a pleasant middle-aged man with a short longstanding diabetes mellitus complicated by him CKD. His recent serum creatinine from 1.2 mg/dL as of January 2023. s/p Cataract and able to see clearly Overall blood sugar seems to be better controlled. He has no new issues today. 10/29/24 s/p right hand surgery BP has been acceptable recently Also had an episode of hypoglycemia and ended upin ER. 12/26/24 - The patient is a 59-year-old male with DM AND CKD presented to [facility] with fluid overload - Hospitalization required diuretics ; Lisinopril switched to ENtresto and coreg. - Hypertension: Blood pressure was 200/100 mmHg, leading to medication adjustment. Creatinine peaked at 1.48 and now improving REPLACED BY [facility] Surgical History Hx of cataract surgery (~02/2023) Social History Alcohol intake: former Physical Exam Vital Signs: Last Vital Signs Pulse 84 12/26/24 15:14 BP 100/60 12/26/24 15:14 Pulse Ox 95 12/26/24 15:14 Oxygen Delivery Method Room Air 12/26/24 15:14 BMI result Body Mass Index 34.4 Comfortable Neck supple no JVD. Lungs entry equal no rales. Heart S1-S2 heard no gallop or rub. Abdomen soft nontender. Neuro alert awake oriented. No asterixis. Extremities 1+ edema. Results Reviewed Nephrology Results: Hgb, (14.0-18.0) 13.3 g/dl L 09/16/24 WBC, (4.8-10.8) 9.6 X10*3/uL 09/16/24 Plt Count, (160-400) 222 X10*3/uL 09/16/24 Sodium, (135-145) 139 mmol/L 09/16/24 Potassium, (3.3-5.1) 3.8 mmol/L 09/16/24 Chloride, (96-108) 107 mmol/L 09/16/24 Carbon Dioxide, (22-29) 24 mmol/L 09/16/24 BUN, (9-16) 22 mg/dL H 09/16/24 Creatinine, (0.5-1.4) 1.35 mg/dL 09/16/24 Calcium, (8.4-10.2) 8.4 mg/dL 09/16/24 Assessment & Plan Assessment & Plan (1) CKD (chronic kidney disease) stage 3, GFR 30-59 ml/min: Code(s): N18.30 - Chronic kidney disease, stage 3 unspecified Category: Medical Plan: CKD due to hypertension diabetic disease. s/p SALAZAR in asetting of heart failure Cr close to baseline Goal is to slow the progression of kidney disease. Continue to avoid nephrotoxic agents Maintain blood pressure less than 130/80 and A1c less than 7%. Agree with HAROLDO inhibition with Entresto (2) HTN (hypertension): Code(s): I10 - Essential (primary) hypertension Category: Medical Plan: Blood pressure is well controlled. Discussed low-salt diet Discussed weight loss Continue current antihypertensive regimen. Plan CHF Follow with cardiology Orders: Orders Basic Metabolic Panel 6 Weeks N18.30 - Chronic kidney disease, stage 3 unspecified Coding Level of Care Code Est Pt Level 4 (11366) Diagnoses CKD (chronic kidney disease) stage 3, GFR 30-59 ml/min N18.30 HTN (hypertension) I10
[2024-12-26 15:14] VITALS: BP 100/60; PULSE 84; O2SAT 95; BMI 34.4
--- OUTSIDE RECORDS SUMMARY | 2024-12-26 16:17 | XMS_ITS | Clinical Summary ---
Author Organization [facility] Address [address] [place] [address] Phone Care Team Providers Care Powder Press Operator Name Role Phone Ashvin Mahmood MD Primary Care Provider Allergies No known active allergies Medications atorvastatin [...] Blood Gluc Sensor (FreeStyle Gopi 2 Sensor) [facility] [place]LOOD GLUCOSE MONITERING 3 Active amLODIPine [...] (6 to 49 Years) Discontinued 01/12/2014 Insurance [facility] Care Teams Powder Press Operator Relationship Specialty Start Date End Date Ashvin Mahmood MD [address] [place] [address] PCP - General 04/06/20
== END 2024-12-26 16:05 | disposition home or self-care (01) ==
LOC: HO.HKA 14:47
PROVIDERS: PCP Internal Medicine; Visit Provider Internal Medicine Hypertension Specialist
DX: N18.30 Chronic kidney disease, stage 3 unspecified (principal); I10 Essential (primary) hypertension
CPT/HCPCS: 99214

== ENCOUNTER 2025-02-17 14:53 | Emergency (ER) | payer OTHER, SELFPAY ==
[2025-02-17 15:01] LABS: Glucose, Whole Blood 197 mg/dL (60-115)
[2025-02-17 15:02] VITALS: BP 124/47; BP 215/90; PULSE 58; PULSE 60; RESP 16; TEMP 36.6; O2SAT 94; O2SAT 98; BMI 36.0
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
[2025-02-17 16:40] LABS: MANUAL DIFF FLAG NO
[2025-02-17 16:41] LABS: Glucose, Whole Blood 178 mg/dL (60-115)
[2025-02-17 16:42] LABS: Hematocrit 43.5 % (42.0-52.0); Hemoglobin 14.9 g/dl (14.0-18.0); Imm Gran Abs Auto 0.06 X10*3/uL (0.00-0.03); Imm Gran Pct Auto 0.6 % (0.0-0.4); Lymphocytes Absolute Auto 0.8 X10*3/uL (1.2-4.9); Mean Corpuscular HGB Conc 34.3 g/dl (31.0-36.0); Mean Corpuscular Hemoglobin 32.1 pg (27.0-33.0); Mean Corpuscular Volume 93.8 fL (80.0-98.0); NRBC Abs Auto 0.000 X10*3/uL (0.0-0.012); NRBC Pct Auto 0.0 /100WBC (0.0-0.2); Platelet Count 219 X10*3/uL (160-400); Red Blood Count 4.64 X10*6/uL (4.60-5.80); White Blood Count 10.9 X10*3/uL (4.8-10.8)
[2025-02-17 16:55] LABS: Alanine Aminotransferase 22 U/L (0-40); Albumin Level 3.9 g/dL (3.5-5.0); Alkaline Phosphatase 80 U/L (39-117); Anion Gap 11 (12-20); Aspartate Amino Transferase 19 U/L (5-37); Blood Urea Nitrogen 46 mg/dL (9-16); Calcium 8.9 mg/dL (8.4-10.2); Carbon Dioxide 26 mmol/L (22-29); Chloride 106 mmol/L (96-108); Creatinine Clr Calc Pharmacy 51.0; Estimated Glomerular Filt Rate 36; Magnesium 2.4 mg/dL (1.6-2.6); Potassium 4.2 mmol/L (3.3-5.1); Sodium 139 mmol/L (135-145); Total Protein 6.6 g/dL (6.5-8.0)
[2025-02-17 17:08] VITALS: BP 127/54; PULSE 57; RESP 18; O2SAT 96
[2025-02-17] MEDS: Lactated Ringers 1,000 ML 999 ML IV (17:09)
--- NOTE | 2025-02-17 17:10 | PC.NURSE ---
pt currently sleeping, labs drawn, vss, ivf started per order
[2025-02-17 18:21] LABS: Glucose, Whole Blood 125 mg/dL (60-115)
[2025-02-17 18:35] LABS: Alanine Aminotransferase 20 U/L (0-40); Albumin Level 3.8 g/dL (3.5-5.0); Alkaline Phosphatase 79 U/L (39-117); Anion Gap 10 (12-20); Aspartate Amino Transferase 19 U/L (5-37); Blood Urea Nitrogen 45 mg/dL (9-16); Calcium 8.8 mg/dL (8.4-10.2); Carbon Dioxide 26 mmol/L (22-29); Chloride 107 mmol/L (96-108); Creatinine Clr Calc Pharmacy 55.6; Estimated Glomerular Filt Rate 40; Potassium 4.4 mmol/L (3.3-5.1); Sodium 139 mmol/L (135-145); Total Protein 6.3 g/dL (6.5-8.0)
[2025-02-17 19:08] VITALS: BP 122/66; PULSE 71; RESP 18; TEMP -17.7; TEMP 0; O2SAT 98
== END 2025-02-17 19:09 | disposition home or self-care (01) ==
PROVIDERS: Emergency Provider Emergency Medicine; PCP Internal Medicine
DX: E11.649 Type 2 diabetes mellitus with hypoglycemia without coma (principal); I12.9 Hypertensive chronic kidney disease with stage 1 through stage 4 chronic kidney disease, or unspecified chronic kidney disease; E11.22 Type 2 diabetes mellitus with diabetic chronic kidney disease; N18.30 Chronic kidney disease, stage 3 unspecified; Z79.4 Long term (current) use of insulin; Z79.84 Long term (current) use of oral hypoglycemic drugs
CPT/HCPCS: 36415; 80053; 82947; 83735; 85025; 99283; 99284; J7120

== ENCOUNTER 2025-02-27 13:16 | Outpatient (AMB) | payer OTHER, SELFPAY ==
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
[2025-02-27 13:18] VITALS: BP 138/62; PULSE 73; O2SAT 97; BMI 34.7
== END 2025-02-27 13:34 | disposition home or self-care (01) ==
LOC: HO.HKA 13:16
PROVIDERS: PCP Internal Medicine; Visit Provider Internal Medicine Hypertension Specialist
DX: N18.30 Chronic kidney disease, stage 3 unspecified (principal); I10 Essential (primary) hypertension
CPT/HCPCS: 99214

== ENCOUNTER 2025-02-27 13:16 | Outpatient (REF) | payer OTHER, SELFPAY ==
[2025-02-27 14:29] LABS: Hematocrit 45.2 % (42.0-52.0); Hemoglobin 15.0 g/dl (14.0-18.0); Mean Corpuscular HGB Conc 33.2 g/dl (31.0-36.0); Mean Corpuscular Hemoglobin 31.2 pg (27.0-33.0); Mean Corpuscular Volume 94.0 fL (80.0-98.0); NRBC Abs Auto 0.000 X10*3/uL (0.0-0.012); NRBC Pct Auto 0.0 /100WBC (0.0-0.2); Platelet Count 269 X10*3/uL (160-400); Red Blood Count 4.81 X10*6/uL (4.60-5.80); White Blood Count 6.9 X10*3/uL (4.8-10.8)
[2025-02-27 15:02] LABS: Alanine Aminotransferase 18 U/L (0-40); Albumin Level 4.0 g/dL (3.5-5.0); Alkaline Phosphatase 92 U/L (39-117); Anion Gap 13 (12-20); Aspartate Amino Transferase 22 U/L (5-37); Blood Urea Nitrogen 33 mg/dL (9-16); Calcium 9.2 mg/dL (8.4-10.2); Carbon Dioxide 26 mmol/L (22-29); Chloride 103 mmol/L (96-108); Estimated Glomerular Filt Rate 42; Potassium 4.6 mmol/L (3.3-5.1); Sodium 137 mmol/L (135-145); Total Protein 6.7 g/dL (6.5-8.0)
== END 2025-02-27 13:17 | disposition home or self-care (01) ==
LOC: HO.LAB 13:16
PROVIDERS: PCP Internal Medicine; Visit Provider Internal Medicine Hypertension Specialist
DX: I12.9 Hypertensive chronic kidney disease with stage 1 through stage 4 chronic kidney disease, or unspecified chronic kidney disease (principal); N18.30 Chronic kidney disease, stage 3 unspecified
CPT/HCPCS: 36415; 80053; 85027